=== PATIENT | female | born 1960 | race Caucasian/White ===

== ENCOUNTER 2017-03-22 13:29 | Outpatient (CLI) | payer OTHER ==
--- NOTE | 2017-03-22 16:11 | RAD ---
RIGHT KNEE TWO VIEWS: History: Right knee pain. FINDINGS: Old healed fractures of the proximal tibia and fibula are apparent. There is joint space narrowing o f the medial compartment and prominent tricompartmental osteophytosis. Osseous structures are demine ralized. No acute fracture or dislocation are evident. Small amount of fluid distends the suprapatel lar bursa on the oblique lateral view. IMPRESSION: 1. Prominent osteoarthritic changes right knee with a small joint effusion. 2. Old healed fractures of the upper tibia and fibula. POS: [facility]
== END 2017-03-22 13:30 | disposition home or self-care (01) ==
LOC: NAV RAD 13:29
PROVIDERS: ATTEND Family Medicine
DX: M17.0 Bilateral primary osteoarthritis of knee (principal); M25.461 Effusion, right knee